=== PATIENT | male | born 1960 | race Caucasian/White ===

== ENCOUNTER 2017-03-11 10:35 | Emergency (ER) | payer OTHER ==
[~2017-03-11] VITALS: Ht 175.2 cm; Wt 68.0 kg
[~2017-03-11 10:35] MED LIST: ANUSOL-HC25 MG R; ASPIRIN81 M1 PO; CARAFATE1 G1 PO; CHANTIX1 MG PO; CLEOCIN150 MG PO; CLINDAMYCIN HC300 MG PO; CYCLOBENZAPRINE10 MG PO; DAYPRO600 M1 PO; DOXYCYCLINE MO100 MG PO; FLEXERIL10 MG PO; FLEXERIL5 MG PO; HYDROCODONE BIT1 T11 PO; LOPRESSOR; LOPRESSOR50 M1 PO; MEDROL DOSEPAK4 MG PO; METOPROLOL50 MG PO; NAPROSYN500 MG PO; NORCO 5-325 TA1 EACH PO; OMEPRAZOLE20 M2 PO; OTIC SOLUTION 110 M1 OT; PEPCID20 MG PO; PERCOCET 325 MG1 TA7 PO; PHENERGAN W/CO120 ML PO; PROAIR HFA0.09 MG/AC INH; ROBAXIN750 MG PO; TRAMADOL HCL50 MG PO; ULTRAM50 MG PO; VICODIN 5/500 505 MG PO; [UNRECOGNIZED DRUG - OTHER] INH
[2017-03-11] MEDS ORDERED: MEDROL DOSEPAK4 MG PO (13:21)
[2017-03-11] MEDS ORDERED: CYCLOBENZAPRINE10 MG PO (13:21)
[2017-03-11] MEDS ORDERED: NAPROSYN500 MG PO (13:21)
== END 2017-03-11 13:25 | disposition home or self-care (01) ==
LOC: ED 10:35
DX: S16.1XXA Strain of muscle, fascia and tendon at neck level, initial encounter (principal); F17.200 Nicotine dependence, unspecified, uncomplicated; Z88.0 Allergy status to penicillin; Z79.82 Long term (current) use of aspirin; Z79.899 Other long term (current) drug therapy; V49.88XA Car occupant (driver) (passenger) injured in other specified transport accidents, initial encounter; Y93.89 Activity, other specified; Y92.89 Other specified places as the place of occurrence of the external cause; Y99.8 Other external cause status